=== PATIENT | female | born 1995 | race Caucasian/White ===

== ENCOUNTER 2017-10-04 17:08 | Emergency (ER) | payer OTHER ==
[2017-10-04] MEDS ORDERED: HYDROcodone/Acetaminophen 5/325 mg Tablet ONE (18:50)
--- NOTE | 2017-10-04 19:12 | RAD ---
FRONTAL AND LATERAL IMAGING OF LEFT TIBIA AND FIBULA: Date: 10-04-17 Comparison: None. History: Trauma, pain. FINDINGS: Obliquely oriented fracture at the junction of the middle third and the distal third of the left fibu lar shaft noted with approximately 8 mm of lateral displacement distal fracture fragment. No addition al fracture is seen. IMPRESSION: Obliquely oriented displaced left fibular shaft fracture. POS: [facility]
--- NOTE | 2017-10-04 20:00 | RAD ---
THREE VIEWS LEFT ANKLE: Date: 10-04-17 Comparison: None. History: Pain, trauma. FINDINGS: There is an obliquely oriented mildly comminuted fracture involving the mid/distal left fibular shaft . The talar dome and ankle mortise appear intact. The distal fibular fracture fragment is displaced laterally by 7 mm. IMPRESSION: Fracture deformity involving the mid/distal left fibular shaft. POS: [facility]
== END 2017-10-04 19:00 | disposition home or self-care (01) ==
LOC: SCSER 17:08
DX: S82.432A Displaced oblique fracture of shaft of left fibula, initial encounter for closed fracture (principal); J45.909 Unspecified asthma, uncomplicated; F41.9 Anxiety disorder, unspecified; Z79.899 Other long term (current) drug therapy; W50.1XXA Accidental kick by another person, initial encounter; Y93.66 Activity, soccer
CPT/HCPCS: 27781